=== PATIENT | female | born 1950 | race Caucasian/White ===

== ENCOUNTER → 2022-02-19 08:25 | Outpatient (CLI) | payer MEDICARE, SELFPAY ==
--- NOTE | ~2022-02-19 | MR_ITS ---
EXAMINATION: MR shoulder RT wo con DATE: 02/19/2022 09:40 INDICATION: Acute onset right shoulder pain TECHNIQUE: Magnetic resonance imaging (MRI) of the right shoulder was performed without intravenous c ontrast. Sequences included axial PD-weighted FS FSE, coronal oblique PD-weighted FS FSE, coronal obl ique T2-weighted FS FSE, sagittal PD-weighted FS FSE, and sagittal T1-weighted SE. COMPARISON: None. FINDINGS: Coracoacromial arch: The acromion undersurface is curved in morphology (type II). Tiny subacromial spur along the anterola teral insertion of the coracoacromial ligament which is mildly thickened. Moderate acromioclavicular osteoarthritis with inferiorly directed osteophytes arising from the lateral head of the clavicle.. Rotator cuff: Moderate supraspinatus and infraspinatus tendinopathy. Supraspinatus tendon tear extending 10 mm AP a long the superior facet footplate which is primarily intrasubstance approximately 2 mm dorsal compone nt. At its most severe at the tear involves greater than half of the tendon thickness. The articular surface appears to remain intact. The teres minor tendon is normal. Mild subscapularis tendinopathy w ithout discrete tear. Normal rotator cuff muscle bulk and signal. Biceps tendon, glenoid labrum and glenohumeral cartilage: Moderate tendinopathy of the intra-articular long head biceps tendon without discrete tear. Degenerat yeimi tearing of the 11:00-8:00 portion of the posterior superior to posterior glenoid labrum. Tiny par avertebral cyst at the 11:00 position. Partial-thickness cartilage loss with chondral surface regular ity but without degenerative subchondral changes along the posterior superior aspect of the humeral h ead. Additional partial thickness cartilage loss at the glenoid with posterior inferior predominance. Tiny marginal osteophytes along the inferior aspect of the right and minimal edema-like marrow signa l change along the anteroinferior rim of the glenoid. Fluid: Small glenohumeral joint effusion with proportional extension of a small amount fluid along the long head biceps tendon sheath. No loose osteochondral bodies. Synovitis and small amount of fluid in the subacromial/subdeltoid bursa consistent with mild to moderate bursitis. Bones: Bone alignment is normal. No fracture or pathologic marrow replacing process. IMPRESSION: 1. Moderate supraspinatus and infraspinatus tendinopathy with small severe partial thickness primaril y intrasubstance tear of the supraspinatus tendon along its superior facet footplate with very small bursal sided component. 2. Mild glenohumeral osteoarthritis and degenerative tearing of the posterior superior to posterior g lenoid labrum. 3. Moderate acromioclavicular osteoarthritis with mild to moderate underlying subacromial/subdeltoid bursitis. 4. Moderate tendinopathy without discrete tear of the intra-articular long head biceps tendon. Reviewed, dictated and finalized at location A. IMPRESSION: 1. Moderate supraspinatus and infraspinatus tendinopathy with small severe part ial thickness primarily intrasubstance tear of the supraspinatus tendon along i ts superior facet footplate with very small bursal sided component. 2. Mild glenohumeral osteoarthritis and degenerative tearing of the posterior s uperior to posterior glenoid labrum. 3. Moderate acromioclavicular osteoarthritis with mild to moderate underlying s ubacromial/subdeltoid bursitis. 4. Moderate tendinopathy without discrete tear of the intra-articular long head biceps tendon.
== END ==
PROVIDERS: PCP Family Medicine; Visit Provider Orthopaedic Surgery
DX: M19.011 Primary osteoarthritis, right shoulder (principal); M75.51 Bursitis of right shoulder
CPT/HCPCS: 73221